=== PATIENT | female | born 1980 | race Caucasian/White ===

== ENCOUNTER 2023-05-30 07:24 | Day surgery (SDC) | payer OTHER ==
[~2023-05-30] VITALS: Ht 157.5 cm; Wt 64.9 kg
[2023-05-30] MEDS ORDERED: fentaNYL citrate 0.05 MG/ML VIAL ONE (08:08)
[2023-05-30] MEDS ORDERED: diphenhydrAMINE 50 MG/ML VIAL ONE (08:08)
[2023-05-30] MEDS ORDERED: MIDAZOLAM 5 MG/5 ML VIAL ONE (08:09)
[2023-05-30] MEDS ORDERED: LIDOCAINE 2% 100 MG/5 ML UJET TP ONE (08:09)
[2023-05-30] MEDS ORDERED: MIDAZOLAM 2 MG/2 ML VIAL IVP ONE (09:20)
[2023-05-30] MEDS ORDERED: fentaNYL citrate 0.05 MG/ML VIAL IVP ONE (09:20)
== END 2023-05-30 09:34 | disposition home or self-care (01) ==
LOC: MOR 07:24 → MMU 07:25 → MOR 09:34
PROVIDERS: ATTEND Internal Medicine Gastroenterology
DX: Z12.11 Encounter for screening for malignant neoplasm of colon (principal)
CPT/HCPCS: 45378; J2250; J3010; J1200